=== PATIENT | female | born 1970 | race Caucasian/White ===

== ENCOUNTER 2016-12-28 23:38 | Emergency (ER) | payer OTHER ==
[~2016-12-28] VITALS: Ht 165.1 cm; Wt 103.6 kg
[~2016-12-28 23:38] MED LIST: DIVA250T12 PO; INSU100C4 SUBQ; OMPR20CCR PO; PRO20 PO; TRAZ-151 PO; ZES20T PO; ZOC20 PO; [UNRECOGNIZED DRUG - CODE] PO; albuterol inhaler
--- NOTE | 2016-12-28 23:49 | ED.REPORT ---
HPI-Seizure Date of Service Dec 28, 2016 ED Provider: Dr. Law Alvarado M.D. A 46 year old female with a medical history including reported seizures, hypertension, and diabetes mellitus presents to the ED via EMS accompanied by her boyfriend after an "abnormally long seizure" (x 2 minutes) this evening. The patient's seizures reportedly consist of bilateral full-body shaking with loss of responsiveness but without full loss of consciousness. Her boyfriend can normally "talk her out of" a seizure but was unable to today. Now the patient reports headache, slurred speech, and bilateral leg and hand paresthesias. She denies recent head trauma, fever, weakness, numbness, or other symptoms. The patient had been on Depakote since 2011 but tapered off this medication last month, replacing it with zonisamide. Nursing Notes Stated Complaint: PARTIAL SEIZURES Nursing Notes Reviewed: Yes Allergies: Coded Allergies: hydrocodone (Verified Allergy, Severe, RASH, 11/28/14) Uncoded Allergies: PENICILLIN (Allergy, Severe, rash over entire body, 12/28/16) Scheduled ([albuterol inhaler]) PRN Divalproex-Expunged Drug, Do Not Renew! (Divalproex ER-Expunged Drug, Do Not Renew!) 250 Mg Tab.sr.24h 250 MG PO BID FLUoxetine-Expunged Drug, Do Not Renew! (FLUoxetine-Expunged Drug, Do Not Renew! ) 20 Mg Capsule 40 MG PO AM Insulin Glargine-Expunged Drug, Do Not Renew! (Lantus-Expunged Drug, Do Not Renew!) 100 Units/Ml Pen.ij.kit 4 SUBQ DAILY Lisinopril-Expunged Drug, Do Not Renew! (Lisinopril-Expunged Drug, Do Not Renew! ) 20 Mg Tablet 20 MG PO BID Loratadine-Expunged Drug,Do Not Renew! (Allergy-Expunged Drug, Do Not Renew!) 10 Mg Tablet 10 MG PO DAILY Omeprazole-Expunged Drug, Do Not Renew! (Omeprazole-Expunged Drug, Do Not Renew! ) 20 Mg Capsule.dr 20 MG PO DAILYAC Simvastatin-Expunged Drug, Choose New Med! (Simvastatin-Expunged Drug, Choose New Med!) 20 Mg Tablet 20 MG PO PM Trazodone-Expunged Drug, Do Not Renew! (Trazodone-Expunged Drug, Do Not Renew!) 50 Mg Tablet 75 MG PO DAILY General Time Seen by Provider: 23:45 Chief Complaint Chief Complaint: Seizure, generalized Seizure Anatomic Location: Generalized Hx Obtained From: Patient, Spouse (Boyfriend), EMS Arrived By: Ambulance Onset Occurred: Just prior to arrival Symptom Duration: 1 - 15 minutes Location: : Head Quality: Aching, Painful Severity: Current: Moderate Severity: Maximum: Moderate Related History: Reports: Diabetes mellitus, Known seizure disorder, Psychiatric history, Denies: Recent head trauma Immunizations: Unknown Recent Healthcare: No recent doctor visit Similar Sx Previous: Yes Past Medical History Past Medical History Seizures Right dermoid cyst Hypertension Asthma Depression Vitiligo Reports: Diabetes mellitus Past Surgical History Total laparoscopic hysterectomy with right salpingo-oophorectomy Cystoscopy of bladder Reports: Cholecystectomy Family History Reviewed, not relevant. Smoking History Never Smoker Social History Former crack cocaine user Alcohol Use: Denies alcohol use Drug Use: Denies drug use Ambulatory Status Independent Review of Systems Review of Systems Note: + Bilateral leg paresthesias Constitutional: Denies: Fever Respiratory: Denies: Non-productive cough, Shortness of breath Neurologic: Reports: Headache, Seizure (bilateral full body shaking with loss of responsiveness but without full loss of consciousness), Slurred speech, Denies: Numbness, Weakness Complete sys rev & neg: except as marked. GI: Denies: Diarrhea, Vomiting Physical Exam Initial Vital Signs Vital Signs (First) Date Time Temp Pulse Resp B/P Pulse Ox O2 Delivery O2 Flow Rate FiO2 12/28/16 23:50 36.6 69 20 153/80 98 Room Air Initial VS: Reviewed Head / Eyes: Atraumatic, Normocephalic ENT: Conjunctiva normal, No scleral icterus Abdomen / GI: Soft, Non-tender Skin: Warm, Dry, No cyanosis General/Constitutional: Awake, Alert, No acute distress Witnessed seizure-like activity included bicycle movement of the legs not involving upper limbs. The patient's eyes were closed during the episode but she was arousable to voice. Afterwards she exhibited some eye rolling apparently of her own volition. Respiratory / Chest: Breath sounds NL, Breath sounds = bilat, No respiratory distress Cardiovascular: Heart rate NL, Regular rhythm, Heart sounds NL Neurologic: Oriented X3, No motor deficits, No sensory deficits Speech: Positive: Slurred CN otherwise intact Interpretation & Diagnostics URINE DRUG SCREEN: Negative Lab Results Interpretation Result Diagram: 12/29/16 0058 12/29/16 0058 Test 12/29/16 00:58 White Blood Count 10.6th/mm3 (3.8-10.1) Red Blood Count 5.04mil/mm3 (3.90-5.20) Hemoglobin 14.4g/dL (12.0-15.6) Hematocrit 41.6% (35.0-46.0) Mean Corpuscular Volume 82.5fL (81-100) Mean Corpuscular Hemoglobin 28.6pg (27.0-35.0) Mean Corpuscular Hemoglobin Concent 34.6% (32.0-37.0) Red Cell Distribution Width 12.4% (12.3-15.4) Platelet Count 249bil/L (150-400) Neutrophils (%) (Auto) 60.3% (40-74) Lymphocytes (%) (Auto) 31.4% (14-46) Monocytes (%) (Auto) 5.3% (4-12) Eosinophils (%) (Auto) 2.0% (0-5) Basophils (%) (Auto) 0.6% (0-3) Band Neutrophils % 0% (1-5) Prothrombin Time 10.0sec (8.1-12.5) Prothromb Time International Ratio 0.94ratio Sodium Level 130mEq/L (134-144) Potassium Level 3.6mEq/L (3.5-5.2) Chloride Level 100mEq/L (97-108) Carbon Dioxide Level 16mmol/L (18-29) Blood Urea Nitrogen 12mg/dL (6-24) Creatinine 0.66mg/dL (0.57-1.00) Estimat Glomerular Filtration Rate 139mL/min (>59) Glucose Level 218mg/dL (60-99) Calcium Level 9.0mg/dL (8.5-10.1) Total Bilirubin 0.6mg/dL (0.0-1.2) Aspartate Amino Transf (AST/SGOT) 17U/L (0-50) Alanine Aminotransferase (ALT/SGPT) 25U/L (0-32) Alkaline Phosphatase 95U/L (25-150) Total Protein 7.6g/dL (6.4-8.4) Albumin 4.1g/dL (3.4-5.0) Human Chorionic Gonadotropin, Qual 0.500 (Negative) Alcohols 10mg/dL (0-10) ECG Interpretation ECG Interpretation: Sinus rhythm rate 70 Time: 00:04 Interpreted by: ED physician X-Ray Chest Interpretation Chest Xray Interpretation: X-ray unremarkable View: Portable, 1 view Interpretation / Wet Read by: Wet read ED physician Re-Eval/Medical Decision Med Decision/Clinical Course 46-year-old with reported seizures presents after episodes at home. The description of these by the boyfriend suggest fairly rapid bilateral small amplitude movements, and he reports that she responds to voice during these episodes. A similar episode occurred while she was here, and I was summoned to observe basically bicycle-type motions of the legs and apparent volitional unconsciousness. She responded to her first name and then closed her eyes after rolling her eyes back in her head. There was no evidence of actual tonic-clonic activity, and no apparent loss of consciousness. Whatever her prior episodes have been, this episode was not seizure. I suspect that all of her episodes have in fact been pseudoseizures, but I do not have sufficient information to come to that conclusion firmly. She has had an EEG in [place], and is not heard the results of that from her neurologist. She intends to transfer her care up to this area, having recently moved. She was referred to Dr. Daugherty for further evaluation. An additional EEG might be helpful, if the first EKG was nondiagnostic. Of note, no real frequency change has happened since stopping Depakote and starting Zonisamide. Source of Hx: Old records Re-Evaluation/Progress #1: Time of Eval: 01:19 Re-Evaluation/Progress Note: Patient is exhibiting her typical seizure behavior, but is arousable to voice. Explained to patient and her boyfriend that this is not consistent with tonic-clonic seizure. Re-Evaluation/Progress #2: Time of Eval: 02:32 Patient Status: Condition improved Re-Evaluation/Progress Note: Discussed with patient and her boyfriend x-ray and lab results, diagnosis, and plan for discharge. Follow-up and return to the ER instructions given. Patient agrees with plan for care and all questions were addressed. Counseled Regarding: Diagnosis, Lab results, Need for follow-up, When/why to return to ED Discharge & Departure Shift Change Sign-Out Response to Therapy: Improved Impression: Primary Impression: Pseudoseizure Disposition: Home Discharge Condition All VS Reviewed: Yes Condition: Improved Additional Instructions: Call your neurologist this morning for follow-up as soon as that can be arranged. Call our neurologist also, if your intention is to transfer your care up here. The episode I observed was not a tonic-clonic seizure. A repeat EEG can be arranged to evaluate you further. Your doctor will need to communicate the results of your recent EEG with you at your next visit. Return if any immediate issues in the meantime. Referrals: Hernan Beltrán MD (PCP) Shawn Chowdhury MD Attestation Portions of this note were transcribed by Niurka Shpepard. I, Dr. Alvarado, personally performed the history, physical exam, and medical decision-making; I reviewed and confirmed the accuracy of the information in the transcribed note. Signed by: Ariel Desai, 12/29/2016, 03:30 copies to: Hernan Beltrán MD; Shawn Chowdhury MD, Christopher W MD Dec 28, 2016 23:49 NIURKA SHEPPARD Dec 29, 2016 00:50
[2016-12-28 23:50] VITALS: BP 153/80; PULSE 69; RESP 20; O2SAT 98
[2016-12-29 01:07] LABS: BASOPHILS % (AUTO) 0.6 % (0-3); MONOCYTES % (AUTO) 5.3 % (4-12); Mean Corpuscular Hemoglobin 28.6 pg (27.0-35.0); Mean Corpuscular Volume 82.5 fL (81-100); NEUTROPHILS % (AUTO) 60.3 % (40-74); Platelet Count 249 bil/L (150-400)
[2016-12-29 01:22] LABS: INR 0.94 ratio
[2016-12-29 03:03] VITALS: BP 125/64; PULSE 80; RESP 20; O2SAT 98
--- NOTE | 2016-12-29 08:42 | DRSVH ---
PROCEDURE: X-RAY CHEST ONE VIEW, PORTABLE ([id number]) INDICATIONS: multiple seizures TECHNIQUE: One view of the chest was acquired. COMPARISON: None. FINDINGS: Surgical changes and devices: None. Lungs and pleura: No pleural effusions or pneumothorax. Lungs are clear. Mediastinum: Mediastinal contours appear normal. Heart size is normal. Bones and chest wall: No suspicious bony lesions. Overlying soft tissues appear unremarkable. IMPRESSION: Normal for age. No aspiration or trauma found. Dictated by: Josiah Bowie M.D. on 12/29/2016 at 8:39 Approved by: Josiah Bowie M.D. on 12/29/2016 at 8:41
== END 2016-12-29 03:04 | disposition home or self-care (01) ==
LOC: SED 23:38
DX: F44.5 Conversion disorder with seizures or convulsions (principal); I10 Essential (primary) hypertension; E11.9 Type 2 diabetes mellitus without complications; J45.909 Unspecified asthma, uncomplicated; Z79.4 Long term (current) use of insulin; Z79.899 Other long term (current) drug therapy; Z88.5 Allergy status to narcotic agent
CPT/HCPCS: 36415; 71010; 80053; 81002; 84703; 85025; 85610; 93005; 99285; G0480